=== PATIENT | female | born 1960 | race American Indian/Alaskan Native ===

== ENCOUNTER 2018-07-18 09:46 | Outpatient (CLI) | payer OTHER ==
--- NOTE | 2018-07-18 13:26 | Mammography Report ---
Bilateral mammogram the tomosynethesis: Findings: Heterogeneous breast parenchyma bilaterally. No mass or microcalcification. Tomosynethesis reveals no abnormality. Normal axilla. Impression: Essentially negative mammogram. Annual followup recommended. BI-RADS CATEGORY: 1 = Negative ACR BI-RADS MAMMOGRAPHIC CODES: 0 = Needs additional imaging evaluation; 1 = Negative; 2 = Benign; 3 = Probably benign; 4 = Suspicious; 5 = Malignant; 6 = Known biopsy-proven malignancy COMMENT: 1. Dense breast tissue, i.e., adenosis, fibrocystic changes, etc., may obscure an underlying neoplasm. 2. Approximately 10% of cancers are not detected with mammography. 3. A negative mammography report should not delay biopsy if a clinically suspicious mass is present. COMMENT: Patient follow-up letters are generated in [employer].
== END 2018-07-18 09:47 | disposition home or self-care (01) ==
LOC: MAMMO 09:46 → EDSTATUS 10:00
PROVIDERS: ATTEND Obstetrics & Gynecology
DX: Z12.31 Encounter for screening mammogram for malignant neoplasm of breast (principal)
CPT/HCPCS: 77063; 77067

== ENCOUNTER 2019-07-20 08:26 | Outpatient (CLI) | payer OTHER ==
--- NOTE | 2019-07-20 16:22 | Mammography Report ---
DIGITAL SCREENING MAMMOGRAM WITH TOMOSYNTHESIS WITH CAD, 07/20/2019 INDICATION: Routine Screening Mammography. SCREENING WITH DARBY ON ORDER TECHNIQUE: Digital bilateral 2D and 3D mammography with tomosynthesis was obtained in the craniocau pippa and mediolateral oblique projections. Computer-Aided Detection (CAD) analysis was used for inter pretation of this study. COMPARISON: 07/18/2018 FINDINGS: Breast Density: The breasts are heterogeneously dense, which may obscure small masses. There is no evidence of dominant mass, suspicious calcifications or architectural distortion in eithe r breast. IMPRESSION: No mammographic evidence of malignancy. Follow up recommendation: Routine yearly BI-RADS Category 1: Negative. A "normal" or negative report should not discourage follow up or biopsy of a clinically significant f inding. A written summary of these findings will be mailed to the patient. The patient will be entered into a mammography reporting system which will generate a reminder letter for the patient's next appointmen t at the appropriate interval. The [employer] recommends yearly mammograms starting at age 40 and continuing as l judson as a woman is in good health. Breast MRI is recommended for women with an approximate 20-25% or greater lifetime risk of breast cancer, including women with a strong family history of breast or ova fred cancer or who have been treated for Hodgkin's disease. Signer Name: Maximo Mitchell MD Signed: 07/20/2019 4:17 PM Workstation Name: [id number]
--- NOTE | 2019-07-21 10:35 | Mammography Report ---
DIGITAL SCREENING MAMMOGRAM WITH TOMOSYNTHESIS WITH CAD, 07/20/2019 INDICATION: Routine Screening Mammography. SCREENING WITH DARBY ON ORDER TECHNIQUE: Digital bilateral 2D and 3D mammography with tomosynthesis was obtained in the craniocauda l and mediolateral oblique projections. Computer-Aided Detection (CAD) analysis was used for interpre tation of this study. COMPARISON: 07/18/2018 FINDINGS: Breast Density: The breasts are heterogeneously dense, which may obscure small masses. There is no evidence of dominant mass, suspicious calcifications or architectural distortion in eithe r breast. IMPRESSION: No mammographic evidence of malignancy. Follow up recommendation: Routine yearly BI-RADS Category 1: Negative. A "normal" or negative report should not discourage follow up or biopsy of a clinically significant f inding. A written summary of these findings will be mailed to the patient. The patient will be entered into a mammography reporting system which will generate a reminder letter for the patient's next appointmen t at the appropriate interval. The [employer] recommends yearly mammograms starting at age 40 and continuing as l judson as a woman is in good health. Breast MRI is recommended for women with an approximate 20-25% or g reater lifetime risk of breast cancer, including women with a strong family history of breast or ovar maynor cancer or who have been treated for Hodgkin's disease. Signer Name: Maximo Mitchell MD Signed: 07/21/2019 10:30 AM Workstation Name: [id number]
== END 2019-07-20 08:27 | disposition home or self-care (01) ==
LOC: SPVWC 08:26
PROVIDERS: ATTEND Obstetrics & Gynecology
DX: Z12.31 Encounter for screening mammogram for malignant neoplasm of breast (principal); Z13.21 Encounter for screening for nutritional disorder
CPT/HCPCS: 77063; 77067